=== PATIENT | male | born 1995 | race American Indian/Alaskan Native ===

== ENCOUNTER 2018-04-17 17:57 | Emergency (ER) | payer SELFPAY ==
[2018-04-17] MEDS ORDERED: NACL 0.9% 1000 ML 1,000 ML IV ONE (19:20)
[2018-04-17] MEDS ORDERED: ZOFRAN IV ONE (19:33)
[2018-04-17] MEDS ORDERED: TYLENOL #3 ONE (19:33)
[2018-04-17] MEDS ORDERED: TYLENOL #3 PO ONE (19:33)
[2018-04-17] MEDS ORDERED: ZOFRAN ONE (19:33)
[2018-04-17 19:52] LABS: Hematocrit 45.9 % (35.5-45.6); Hemoglobin 15.2 gm/dl (11.8-15.2); Mean Corpuscular HGB Conc 33 % (32-34); Mean Corpuscular Hemoglobin 33 pg (28-32); Mean Corpuscular Volume 99 fl (84-94); Platelet Count 196 K/mm3 (140-440); Red Blood Count 4.65 M/mm3 (3.65-5.03); Red Cell Distribution Width 13.6 % (13.2-15.2)
[2018-04-17] MEDS ORDERED: KEPPRA 1,000 MG/NS 0.75% 100ML 1,000 MG/100 ML BAG IV ONE (20:13)
--- NOTE | 2018-04-17 21:03 | Cat Scan Report ---
FINAL REPORT PROCEDURE: CT HEAD/BRAIN WO CON TECHNIQUE: Computerized tomography of the head was performed without contrast material. HISTORY: headache COMPARISON: No prior studies are available for comparison. FINDINGS: Skull and scalp: Normal. Paranasal sinuses: Normal. Ventricles and subarachnoid spaces: Normal. Cerebrum: No evidence of hemorrhage, acute infarction or mass . Cerebellum and brainstem: No evidence of hemorrhage, acute infarction or mass. Vasculature: Normal. Comments: None. IMPRESSION: Normal Examination
[2018-04-17 21:21] LABS: BUN/Creatinine Ratio 11; Blood Urea Nitrogen 10 mg/dL (9-20); Calcium 9.6 mg/dL (8.4-10.2); Hemolysis Index 12
--- NOTE | 2018-04-17 21:56 | Emergency Department Report ---
HPI - General Chief Complaint: Seizure Time Seen by Provider: 04/17/18 19:10 - HPI HPI: The patient is a 23-year-old male presents for evaluation of seizure-like activity. The patient is accompanied by family member, whom reports witnessing the patient experience shaking of the extremities and unresponsiveness approximate one-hour prior to arrival, lasting for less than 1 minute. The patient reports mild stinging pain to the left lateral tongue, secondary to biting of his tongue during the seizure-like activity. The patient's mother states that he has exhibited seizure-like activity a minimum of 4-5 times over the past 6 months. He does not recall seizure-like activity but does recall biting his tongue one night during sleep. The patient denies fever, head injury , headache, neck pain, neck stiffness, vision or hearing changes, smell or taste changes, paresthesias, facial drooping, slurred speech, urine or bowel incontinence or retention, or other focal neurological deficit. ED Past Medical Hx - Past Medical History Previous Medical History?: No - Surgical History Past Surgical History?: No - Social History Smoking Status: Current Every Day Smoker Substance Use Type: None - Medications Home Medications: Home Medications Medication Instructions Recorded Confirmed Last Taken Type ALBUTEROL Inhaler [ProAir HFA 2 puff IH QID PRN #1 inhalation 11/16/13 Unknown Rx Inhaler] Azithromycin [Zithromax] 500 mg PO QDAY #3 tablet 11/16/13 Unknown Rx levETIRAcetam [Keppra TAB] 500 mg PO BID #60 tablet 04/17/18 Unknown Rx ED Review of Systems ROS: Stated complaint: SEIZURE Other details as noted in HPI Constitutional: denies: fever ENT: denies: throat or neck pain Respiratory: denies: cough, shortness of breath Cardiovascular: denies: chest pain Endocrine: denies unexplained weight loss or gain Gastrointestinal: denies: abdominal pain, nausea Genitourinary: denies: dysuria Musculoskeletal: denies: leg swelling Skin: denies: rash Neurological: seizure reported (per family) denies: headache Hematological/Lymphatic: denies: easy bleeding or easy bruising Psych: denies sadness or hopelessness Physical Exam - Physical Exam Vital Signs: Vital Signs 04/17/18 04/17/18 04/17/18 18:52 19:00 19:42 Temperature 97.5 F L Pulse Rate 79 89 Respiratory 16 16 Rate Blood Pressure 126/93 Blood Pressure 124/91 [Left] O2 Sat by Pulse 100 99 Oximetry 04/17/18 20:26 Temperature Pulse Rate Respiratory 16 Rate Blood Pressure Blood Pressure [Left] O2 Sat by Pulse Oximetry Physical Exam: General: well-nourished, well-developed, no acute distress Head: Normocephalic, atraumatic Eyes: normal sclera ENT: Mucous membranes are pale and dry Neck: No neck stiffness, no cervical adenopathy Respiratory: Breath sounds equal bilaterally, no wheezing, rales, or rhonchi Cardio: S1 and S2 present, no murmurs, rubs, gallops, capillary refill is delayed Abdomen: Normoactive bowel sounds, soft abdomen, no rigidity, no guarding or rebound tenderness Chest WALL/Back: No tenderness to palpation of the chest wall, no CVA tenderness with percussion Musc: No pitting edema Skin: No rash Neuro:alert oriented x4, normal cognition, speech normal, PERRL, EOM intact, no facial drooping, no uvula or tongue deviation on protrusion, no deficit with rotation of neck or shoulder shrug, no obvious gross motor deficit in the upper or lower extremities with flexion or extension at the shoulder, elbow, wrist, hip, knee, or ankle bilaterally, no obvious gross sensation deficit to crude touch or 2 pt discrimination, 2+ symmetric reflexes on DTR testing, no coordination deficit with [id number] or cceo-[id number] testing, Babinski downgoing, romberg negative, patient able to to ambulate without abnormal gait Psych: Normal affect ED Course Vital Signs 04/17/18 04/17/18 04/17/18 18:52 19:00 19:42 Temperature 97.5 F L Pulse Rate 79 89 Respiratory 16 16 Rate Blood Pressure 126/93 Blood Pressure 124/91 [Left] O2 Sat by Pulse 100 99 Oximetry 04/17/18 20:26 Temperature Pulse Rate Respiratory 16 Rate Blood Pressure Blood Pressure [Left] O2 Sat by Pulse Oximetry ED Medical Decision Making - Lab Data Result diagrams: 04/17/18 19:29 04/17/18 19:29 - Medical Decision Making The patient was seen and examined by myself. The patient is placed on a campus monitor and continuous pulse ox. On initial evaluation, the patient was found to be in no distress. Evaluation orders were placed. The patient 1 L normal saline fluid bolus and IV Keppra for treatment of his seizure. Lab results are unremarkable. CT scan the head is unremarkable. The patient was reevaluated and reported that their symptoms were markedly improved. The patient is stable for discharge with outpatient follow-up. The patient is given follow-up and return instructions. The patient expressed understanding and agreed with the plan. The patient is discharged in stable condition. Critical care attestation.: If time is entered above; I have spent that time in minutes in the direct care of this critically ill patient, excluding procedure time. ED Disposition Clinical Impression: Seizure disorder, Acute non intractable tension-type headache Disposition: DC- TO HOME OR SELFCARE Is pt being admited?: No Does the pt Need Aspirin: No Condition: Stable Instructions: Epilepsy (ED), Recurrent Seizures Adult (ED) Prescriptions: levETIRAcetam [Keppra TAB] 500 mg PO BID #60 tablet Referrals: JULIANA CARRERA MD [Staff Physician] - 3-5 Days GIOVANNI RYAN MD [Staff Physician] - 3-5 Days Time of Disposition: 21:57
[2018-04-17 22:44] VITALS: BP 123/70
== END 2018-04-17 22:44 | disposition home or self-care (01) ==
LOC: ED 17:57
DX: G40.909 Epilepsy, unspecified, not intractable, without status epilepticus (principal); G44.209 Tension-type headache, unspecified, not intractable; F17.200 Nicotine dependence, unspecified, uncomplicated
CPT/HCPCS: 36415; 70450; 80048; 82550; 85027; 93005; 93010; 96361; 96365; 96375; 99285; G0480; J1953; J2405; J7030; 80320

== ENCOUNTER 2018-07-12 09:49 | Emergency (ER) | payer OTHER ==
[2018-07-12] MEDS ORDERED: KEPPRA 1,000 MG/NS 0.75% 100ML 1,000 MG/100 ML BAG IV ONE (10:20)
[2018-07-12] MEDS ORDERED: TORADOL IV ONE (10:20)
--- NOTE | 2018-07-12 10:21 | Emergency Department Report ---
ED Seizure HPI - General Chief Complaint: Seizure Stated Complaint: SEIZURE Time Seen by Provider: 07/12/18 10:11 Source: patient, RN notes reviewed, old records reviewed Mode of arrival: Wheelchair Limitations: No Limitations - History of Present Illness Initial Comments: This is a 23-year-old gentleman who is not known to this provider previously. He has a past medical history of seizure disorder, is supposed to be on Keppra 500 mg twice daily, and reports poor medication compliance. He presented to the ER with friends with reports of a seizure 30 minutes prior to arrival. The patient indicates poor compliance with his antiepileptic drug therapy. He does not think he fell or hit his head. His seizure did not radiate anywhere, and resolved on insulin. He indicates throbbing global headache, which is not sudden or thunderclap in nature and not maximal in intensity. He also complains of diffuse myalgias. He denies cough, shortness of breath, urinary symptoms. MD Complaint: possible seizure -: Sudden, This morning Seizure History: known seizure disorder, history of non-compliance Place: home Associated Symptoms: malaise, other (headache). denies: chest pain, confusion, cough, diaphoresis, fever/chills, loss of appetite, rash, shortness of breath, syncope, weakness, tongue injury, shoulder dislocation - Related Data Previous Rx's Medication Instructions Recorded Last Taken Type ALBUTEROL Inhaler [ProAir HFA 2 puff IH QID PRN #1 inhalation 11/16/13 Unknown Rx Inhaler] Azithromycin [Zithromax] 500 mg PO QDAY #3 tablet 11/16/13 Unknown Rx levETIRAcetam [Keppra TAB] 500 mg PO BID #60 tablet 04/17/18 Unknown Rx levETIRAcetam [Keppra TAB] 500 mg PO BID #60 tablet 07/12/18 Unknown Rx Allergies Allergy/AdvReac Type Severity Reaction Status Date / Time No Known Allergies Allergy Verified 11/16/13 11:04 ED Review of Systems ROS: Stated complaint: SEIZURE Other details as noted in HPI Constitutional: malaise Eyes: denies: eye discharge ENT: denies: epistaxis Respiratory: denies: cough Cardiovascular: denies: chest pain Gastrointestinal: denies: abdominal pain Genitourinary: denies: urgency Musculoskeletal: arthralgia, myalgia Neurological: weakness. denies: numbness, paresthesias, confusion, abnormal gait, vertigo ED Past Medical Hx - Past Medical History Previous Medical History?: Yes Hx Seizures: Yes (not on medication) - Surgical History Past Surgical History?: No - Social History Smoking Status: Current Every Day Smoker Substance Use Type: Alcohol - Medications Home Medications: Home Medications Medication Instructions Recorded Confirmed Last Taken Type ALBUTEROL Inhaler [ProAir HFA 2 puff IH QID PRN #1 inhalation 11/16/13 Unknown Rx Inhaler] Azithromycin [Zithromax] 500 mg PO QDAY #3 tablet 11/16/13 Unknown Rx levETIRAcetam [Keppra TAB] 500 mg PO BID #60 tablet 04/17/18 Unknown Rx levETIRAcetam [Keppra TAB] 500 mg PO BID #60 tablet 07/12/18 Unknown Rx ED Physical Exam - General Limitations: No Limitations General appearance: alert, in no apparent distress - Head Head exam: Present: atraumatic, normocephalic - Eye Eye exam: Present: normal appearance, PERRL, EOMI, other (visual acuity intact to finger counting, color perception, reading at a close distance). Absent: nystagmus - ENT ENT exam: Present: normal exam, normal orophraynx, mucous membranes moist, normal external ear exam - Neck Neck exam: Present: normal inspection, full ROM - Respiratory Respiratory exam: Present: normal lung sounds bilaterally. Absent: respiratory distress - Cardiovascular Cardiovascular Exam: Present: regular rate, normal rhythm, normal heart sounds. Absent: bradycardia, tachycardia, irregular rhythm, systolic murmur, diastolic murmur, rubs, gallop - GI/Abdominal GI/Abdominal exam: Present: soft, normal bowel sounds. Absent: distended, tenderness, guarding, rebound, rigid, pulsatile mass - Rectal Rectal exam: Present: deferred - Extremities Exam Extremities exam: Present: normal inspection, full ROM, normal capillary refill , other (2+ pulses noted in the bilateral upper, lower extremities. Compartments soft. No long bony tenderness. The pelvis is stable.). Absent: pedal edema, joint swelling, calf tenderness - Back Exam Back exam: Present: normal inspection, full ROM. Absent: tenderness, CVA tenderness (R), paraspinal tenderness, vertebral tenderness - Neurological Exam Neurological exam: Present: alert, oriented X3, CN II-XII intact, normal gait, other (Extraocular movements intact. Tongue midline. No facial droop. Facial sensation intact to light touch in the V1, V2, V3 distribution bilaterally. 5 and 5 strength in 4 extremities.. Sensation is intact to light touch in 4 extremities.). Absent: motor sensory deficit - Psychiatric Psychiatric exam: Present: normal affect, normal mood - Skin Skin exam: Present: warm, dry, intact, normal color. Absent: rash ED Course Vital Signs 07/12/18 07/12/18 07/12/18 09:47 10:00 10:01 Temperature 97.6 F Pulse Rate 60 88 Respiratory 22 15 15 Rate Blood Pressure 135/76 135/76 O2 Sat by Pulse 98 99 Oximetry 07/12/18 10:31 Temperature Pulse Rate Respiratory Rate Blood Pressure 134/71 O2 Sat by Pulse 100 Oximetry ED Medical Decision Making - Lab Data Result diagrams: 07/12/18 09:55 07/12/18 09:55 Vital Signs 07/12/18 07/12/18 07/12/18 09:47 10:00 10:01 Temperature 97.6 F Pulse Rate 60 88 Respiratory 22 15 15 Rate Blood Pressure 135/76 135/76 O2 Sat by Pulse 98 99 Oximetry 07/12/18 10:31 Temperature Pulse Rate Respiratory Rate Blood Pressure 134/71 O2 Sat by Pulse 100 Oximetry Lab Results 07/12/18 07/12/18 07/12/18 Range/Units 09:55 09:55 09:55 WBC 11.6 H (4.5-11.0) K/mm3 RBC 4.67 (3.65-5.03) M/mm3 Hgb 15.7 H (11.8-15.2) gm/dl Hct 47.4 H (35.5-45.6) % MCV 102 H (84-94) fl MCH 34 H (28-32) pg MCHC 33 (32-34) % RDW 13.1 L (13.2-15.2) % Plt Count 213 (140-440) K/mm3 Sodium 140 (137-145) mmol/L Potassium 3.9 (3.6-5.0) mmol/L Chloride 100.0 (98-107) mmol/L Carbon Dioxide 18 L (22-30) mmol/L Anion Gap 26 mmol/L BUN 12 (9-20) mg/dL Creatinine 1.1 (0.8-1.5) mg/dL Estimated GFR > 60 ml/min BUN/Creatinine Ratio 11 % Glucose 122 H (75-100) mg/dL POC Glucose (70-105) Calcium 10.1 (8.4-10.2) mg/dL Total Creatine Kinase 187 H (55-170) units/L // Range/Units 10:03 WBC (4.5-11.0) K/mm3 RBC (3.65-5.03) M/mm3 Hgb (11.8-15.2) gm/dl Hct (35.5-45.6) % MCV (84-94) fl MCH (28-32) pg MCHC (32-34) % RDW (13.2-15.2) % Plt Count (140-440) K/mm3 Sodium (137-145) mmol/L Potassium (3.6-5.0) mmol/L Chloride (98-107) mmol/L Carbon Dioxide (22-30) mmol/L Anion Gap mmol/L BUN (9-20) mg/dL Creatinine (0.8-1.5) mg/dL Estimated GFR ml/min BUN/Creatinine Ratio % Glucose (75-100) mg/dL POC Glucose 121 H (70-105) Calcium (8.4-10.2) mg/dL Total Creatine Kinase (55-170) units/L - Medical Decision Making Differential diagnosis, including but not limited to: Seizure, migraine headache , tension headache, cluster headache, medication noncompliance Assessment and plan: 23-year-old gentleman with recurrent seizure, last visit to this hospital was in March, endorses medication noncompliance. His physical examination and neurologic examination are appropriate and within normal limits , he walks with a steady gait, and has a Ethan Coma Scale of 15, with an NIH score of 0. He is clinically sober at this time, given Toradol for his headache , and loaded with 1 g of Keppra. Patient is advised that noncompliance with Therapy may result in breakthrough seizures, which in turn can cause disability , paralysis, loss of quality of life. He is further advised to remain compliant with his antiepileptic drug therapy, and to not drive or operate motor vehicles for the next 6 months. Critical care attestation.: If time is entered above; I have spent that time in minutes in the direct care of this critically ill patient, excluding procedure time. ED Disposition Clinical Impression: History of seizure Disposition: DC-01 TO HOME OR SELFCARE Is pt being admited?: No Does the pt Need Aspirin: No Condition: Good Instructions: Recurrent Seizures Adult (ED) Additional Instructions: Do not drive or operate motor vehicles for the next 6 months. Follow up with the neurology specialist within the next 7-10 days. Not taking his seizure medicine may result in breakthrough seizure, which can cause , disability, paralysis, loss of quality life. Take acetaminophen, alternating with ibuprofen [id number] as needed for pain. Return to the ER right away with recurrent seizure, projectile vomiting, change in mental status, confusion , inability to tolerate liquid feeds. Take the seizure/keppra medication as directed. Referrals: GO LIN MD [Referring] - 3-5 Days KOFI ALFARO MD [Staff Physician] - 3-5 Days JUANCARLOS MONSALVE MD [Staff Physician] - 3-5 Days
[2018-07-12 10:26] LABS: Hematocrit 47.4 % (35.5-45.6); Hemoglobin 15.7 gm/dl (11.8-15.2); Mean Corpuscular HGB Conc 33 % (32-34); Mean Corpuscular Hemoglobin 34 pg (28-32); Mean Corpuscular Volume 102 fl (84-94); Platelet Count 213 K/mm3 (140-440); Red Blood Count 4.67 M/mm3 (3.65-5.03); Red Cell Distribution Width 13.1 % (13.2-15.2)
[2018-07-12 10:49] VITALS: BP 134/71
[2018-07-12 11:03] LABS: BUN/Creatinine Ratio 11; Blood Urea Nitrogen 12 mg/dL (9-20); Calcium 10.1 mg/dL (8.4-10.2); Hemolysis Index 34
== END 2018-07-12 13:04 | disposition home or self-care (01) ==
LOC: ED 09:49
DX: R56.9 Unspecified convulsions (principal); F17.200 Nicotine dependence, unspecified, uncomplicated
CPT/HCPCS: 36415; 80048; 82550; 82962; 85027; 96374; 96375; 99284; J1885; J1953

== ENCOUNTER 2018-09-01 10:41 | Emergency (ER) | payer SELFPAY ==
[2018-09-01] MEDS ORDERED: KEPPRA 1,000 MG/NS 0.75% 100ML 1,000 MG/100 ML BAG IV ONE (11:12)
--- NOTE | 2018-09-01 11:15 | Emergency Department Report ---
ED Seizure HPI - General Chief Complaint: Seizure Stated Complaint: SEIZURE Time Seen by Provider: 09/01/18 11:12 Source: patient Mode of arrival: Stretcher Limitations: No Limitations - History of Present Illness Initial Comments: Patient is a 23-year-old male with a history of seizure disorder who is presenting status post seizure. Patient had a grand mal seizure prior to arrival but is back at his baseline at this time. Patient takes Keppra but has been very noncompliant with his medications. The patient admits that he is not been taking his medicines lately. Patient denies any issues with eating and drinking feels back at his baseline at this time he denies any fevers neck stiffness nausea vomiting or diarrhea. - Related Data Previous Rx's Medication Instructions Recorded Last Taken Type ALBUTEROL Inhaler (OR & NICU) 2 puff IH QID PRN #1 inhalation 11/16/13 Unknown Rx [ProAir HFA Inhaler] Azithromycin [Zithromax] 500 mg PO QDAY #3 tablet 11/16/13 Unknown Rx levETIRAcetam [Keppra TAB] 500 mg PO BID #60 tablet 04/17/18 Unknown Rx levETIRAcetam [Keppra TAB] 500 mg PO BID #60 tablet 07/12/18 Unknown Rx Allergies Allergy/AdvReac Type Severity Reaction Status Date / Time No Known Allergies Allergy Verified 11/16/13 11:04 ED Review of Systems ROS: Stated complaint: SEIZURE Other details as noted in HPI Comment: All other systems reviewed and negative ED Past Medical Hx - Past Medical History Previous Medical History?: Yes Hx Seizures: Yes (not on medication) - Social History Smoking Status: Current Every Day Smoker Substance Use Type: Marijuana - Medications Home Medications: Home Medications Medication Instructions Recorded Confirmed Last Taken Type ALBUTEROL Inhaler (OR & NICU) 2 puff IH QID PRN #1 inhalation 11/16/13 Unknown Rx [ProAir HFA Inhaler] Azithromycin [Zithromax] 500 mg PO QDAY #3 tablet 11/16/13 Unknown Rx levETIRAcetam [Keppra TAB] 500 mg PO BID #60 tablet 04/17/18 Unknown Rx levETIRAcetam [Keppra TAB] 500 mg PO BID #60 tablet 07/12/18 Unknown Rx ED Physical Exam - General Limitations: No Limitations General appearance: alert, in no apparent distress - Head Head exam: Present: atraumatic, normocephalic - Eye Eye exam: Present: normal appearance - ENT ENT exam: Present: mucous membranes moist - Neck Neck exam: Present: normal inspection - Respiratory Respiratory exam: Present: normal lung sounds bilaterally. Absent: respiratory distress, wheezes, rales - Cardiovascular Cardiovascular Exam: Present: regular rate, normal rhythm. Absent: systolic murmur, diastolic murmur, rubs, gallop - GI/Abdominal GI/Abdominal exam: Present: soft, normal bowel sounds. Absent: tenderness, guarding, rebound - Rectal Rectal exam: Present: deferred - Extremities Exam Extremities exam: Present: normal inspection - Back Exam Back exam: Present: normal inspection - Neurological Exam Neurological exam: Present: alert, oriented X3 - Psychiatric Psychiatric exam: Present: normal affect, normal mood - Skin Skin exam: Present: warm, dry, intact, normal color. Absent: rash ED Course Vital Signs 09/01/18 11:02 Temperature 98.2 F Pulse Rate 97 H Respiratory 16 Rate Blood Pressure 132/82 O2 Sat by Pulse 100 Oximetry ED Medical Decision Making - Medical Decision Making Patient was loaded with 1 g of Keppra. Patient was seizure free while in emergency department the patient was urged to take his Keppra as prescribed. Patient be discharged home at this time. Critical care attestation.: If time is entered above; I have spent that time in minutes in the direct care of this critically ill patient, excluding procedure time. ED Disposition Clinical Impression: Seizure, Seizure secondary to subtherapeutic anticonvulsant medication Disposition: - TO HOME OR SELFCARE Is pt being admited?: No Does the pt Need Aspirin: No Condition: Stable Instructions: Epilepsy (ED) Referrals: PRIMARY CARE, [Primary Care Provider] - 3-5 Days Time of Disposition: 12:02
[2018-09-01 12:36] VITALS: BP 140/88
== END 2018-09-01 12:35 | disposition home or self-care (01) ==
LOC: ED 10:41 → EEVIPCON 10:41 → ED 12:35
DX: G40.509 Epileptic seizures related to external causes, not intractable, without status epilepticus (principal); F17.200 Nicotine dependence, unspecified, uncomplicated; F12.10 Cannabis abuse, uncomplicated
CPT/HCPCS: 96365; 99283; J1953

== ENCOUNTER 2019-07-05 11:58 | Emergency (ER) | payer OTHER ==
[2019-07-05] MEDS ORDERED: KEPPRA 1,000 MG in NACL 0.9% 100 ML IV ONE (12:32)
--- NOTE | 2019-07-05 12:36 | Emergency Department Report ---
ED Seizure HPI - General Chief Complaint: Seizure Stated Complaint: SEIZURE Time Seen by Provider: 07/05/19 12:27 Source: patient Mode of arrival: Ambulatory Limitations: No Limitations - History of Present Illness Initial Comments: 25-year-old male presents to the ED following seizure at home. The patient has seizure history, reports he is compliant with his Keppra 500 mg twice a day. Family currently at bedside, witnessed seizure. They believe this seizure may be due to stress because patient's brother on yesterday. Patient has laceration to left eyebrow. Denies headache at this time. MD Complaint: seizure -: hour(s) (1) Description of Episode: loss of consciousness Witnessed:: Yes Trauma: Yes Seizure History: known seizure disorder, compliant with medication Place: home Possible Precipitating Event: stress ( of family member) Associated Symptoms: denies: chest pain, fever/chills, shortness of breath Treatments Prior to Arrival: none - Related Data Previous Rx's Medication Instructions Recorded Last Taken Type ALBUTEROL Inhaler (OR & NICU) 2 puff IH QID PRN #1 inhalation 11/16/13 Unknown Rx [ProAir HFA Inhaler] levETIRAcetam [Keppra TAB] 500 mg PO BID #60 tablet 07/12/18 Unknown Rx Naproxen [Naprosyn] 500 mg PO BID #20 tablet 07/05/19 Unknown Rx levETIRAcetam [Keppra TAB] 500 mg PO BID #60 tablet 07/05/19 Unknown Rx Allergies Allergy/AdvReac Type Severity Reaction Status Date / Time No Known Allergies Allergy Verified 11/16/13 11:04 ED Review of Systems ROS: Stated complaint: SEIZURE Other details as noted in HPI Comment: All other systems reviewed and negative Constitutional: denies: chills, fever Respiratory: denies: cough Cardiovascular: denies: chest pain Gastrointestinal: denies: abdominal pain, vomiting Neurological: denies: headache ED Past Medical Hx - Past Medical History Previous Medical History?: Yes Hx Seizures: Yes (not on medication) - Surgical History Past Surgical History?: No - Social History Smoking Status: Never Smoker Substance Use Type: None - Medications Home Medications: Home Medications Medication Instructions Recorded Confirmed Last Taken Type ALBUTEROL Inhaler (OR & NICU) 2 puff IH QID PRN #1 inhalation 11/16/13 07/05/19 Unknown Rx [ProAir HFA Inhaler] levETIRAcetam [Keppra TAB] 500 mg PO BID #60 tablet 07/12/18 07/05/19 Unknown Rx Naproxen [Naprosyn] 500 mg PO BID #20 tablet 07/05/19 Unknown Rx levETIRAcetam [Keppra TAB] 500 mg PO BID #60 tablet 07/05/19 Unknown Rx ED Physical Exam - General Limitations: No Limitations General appearance: alert, in no apparent distress - Head Head exam: Present: other (3 cm laceration to left brow) - Eye Eye exam: Present: normal appearance, PERRL, EOMI - ENT ENT exam: Present: mucous membranes moist - Neck Neck exam: Present: normal inspection - Respiratory Respiratory exam: Present: normal lung sounds bilaterally. Absent: respiratory distress - Cardiovascular Cardiovascular Exam: Present: regular rate, normal rhythm - GI/Abdominal GI/Abdominal exam: Present: soft. Absent: distended, tenderness - Extremities Exam Extremities exam: Present: normal inspection - Neurological Exam Neurological exam: Present: alert, oriented X3, CN II-XII intact. Absent: motor sensory deficit - Psychiatric Psychiatric exam: Present: normal affect, normal mood - Skin Skin exam: Present: warm, dry, intact, normal color ED Course Vital Signs 07/05/19 07/05/19 07/05/19 12:13 14:14 16:56 Temperature 98.4 F Pulse Rate 78 94 H 74 Respiratory 16 16 16 Rate Blood Pressure 129/73 Blood Pressure 129/96 146/74 [Left] O2 Sat by Pulse 98 96 96 Oximetry - Laceration /Wound Repair Face Wound Location: face Wound Length (cm): 3 Wound's Depth, Shape: into muscle, linear Wound Explored: clean Irrigated w/ Saline (ccs): 30 Anesthesia: 1% Lidocaine Volume Anesthetic (ccs): 3 Wound Repaired With: sutures Suture Size/Type: 3:0, proline Number of Sutures: 3 Layer Closure?: No ED Medical Decision Making - Lab Data Result diagrams: 07/05/19 12:37 07/05/19 12:37 - Radiology Data Radiology results: report reviewed, image reviewed - Medical Decision Making 24-year-old male presenting to the ED following seizures at home. Patient did have 1 seizure here in the ED, for which he received Ativan. Keppra also given. Seizures thought to be due to stress, as patient's brother on yesterday. Patient reports he has been compliant with his medications. CT head negative for any intracranial injury. Patient sustained laceration to the left eyebrow, which was repaired. The patient also reported some right shoulder pain, which she states usually happens after a seizure. X-ray of the right shoulder shows no fracture or dislocation. Patient feeling much better at this time will discharge home. Has upcoming appointment with neurologist. Return precautions given. - Differential Diagnosis intracranial injury, fracture, shoulder dislocation Critical care attestation.: If time is entered above; I have spent that time in minutes in the direct care of this critically ill patient, excluding procedure time. ED Disposition Clinical Impression: Seizure, Facial laceration, Contusion of shoulder, right Disposition: DC-01 TO HOME OR SELFCARE Is pt being admited?: No Condition: Stable Instructions: Suture Care (ED), Laceration (ED) Additional Instructions: Please return to the ER or follow up with your physician in 5 days to have sutures removed. Prescriptions: levETIRAcetam [Keppra TAB] 500 mg PO BID #60 tablet Naproxen [Naprosyn] 500 mg PO BID #20 tablet Referrals: PRIMARY CAREMD [Primary Care Provider] - 3-5 Days KIESHA HAWK MD [Staff Physician] - 3-5 Days Forms: Work/School Release Form(ED) Time of Disposition: 18:03
[2019-07-05] MEDS ORDERED: ATIVAN ONE (12:53)
[2019-07-05] MEDS ORDERED: KEPPRA 1,000 MG/NS 0.75% 100ML 1,000 MG/100 ML BAG IV ONE (12:56)
[2019-07-05] MEDS ORDERED: ATIVAN IV ONE (13:01)
[2019-07-05 13:22] LABS: BUN/Creatinine Ratio 12; Blood Urea Nitrogen 12 mg/dL (9-20); Hemolysis Index 16
[2019-07-05 13:37] LABS: Hematocrit 44.4 % (35.5-45.6); Hemoglobin 14.7 gm/dl (11.8-15.2); Mean Corpuscular HGB Conc 33 % (32-34); Mean Corpuscular Volume 99 fl (84-94); Platelet Count 192 K/mm3 (140-440); Red Blood Count 4.49 M/mm3 (3.65-5.03); Red Cell Distribution Width 13.8 % (13.2-15.2)
--- NOTE | 2019-07-05 14:45 | Cat Scan Report ---
CT HEAD WITHOUT CONTRAST INDICATION : Seizure, injury. TECHNIQUE: Axial imaging performed from the skull apex through the skull base without the use of con trast. Sagittal and coronal reformatted images. All CT scans at this location are performed using C T dose reduction for ALARA by means of automated exposure control. COMPARISON: 04/17/2018 FINDINGS: Parenchyma: No acute intracranial hemorrhage or parenchymal abnormality. Ventricles: Ventricles are normal in size and appear symmetric. Bones: No acute osseous abnormality. Sinuses: Sinuses and mastoid air cells are clear. Soft tissues: Soft tissues including the orbits appear normal. IMPRESSION: No acute abnormality. Signer Name: Gordon Lemus Jr, MD Signed: 07/05/2019 2:40 PM Workstation Name: [id number]
[2019-07-05 14:58] LABS: Band Neutrophils # (Manual) 0.1 K/mm3; Basophils % (Manual) 0 % (0.0-1.8); Eosinophils % (Manual) 0 % (0.0-4.3); Platelet Estimate Consistent w Auto; RBC Morphology Normal; Total Cells Counted 100
[2019-07-05] MEDS ORDERED: XYLOCAINE 1% 20 mL ONE (16:14)
[2019-07-05 16:59] VITALS: BP 146/74
[2019-07-05] MEDS ORDERED: IBUPROFEN PO ONE (17:11)
--- NOTE | 2019-07-05 17:54 | XRay Report ---
RIGHT SHOULDER 3 VIEW(S) INDICATION / CLINICAL INFORMATION: pain COMPARISON: None available. FINDINGS: BONES / JOINT(S): No acute fracture or subluxation. No significant arthritis. SOFT TISSUES: No significant abnormality. ADDITIONAL FINDINGS: None. Signer Name: Fabrizio Bradley MD Signed: 07/05/2019 5:50 PM Workstation Name: [id number]
== END 2019-07-05 18:32 | disposition home or self-care (01) ==
LOC: ED 11:58
DX: S01.112A Laceration without foreign body of left eyelid and periocular area, initial encounter (principal); S40.011A Contusion of right shoulder, initial encounter; G40.909 Epilepsy, unspecified, not intractable, without status epilepticus; X58.XXXA Exposure to other specified factors, initial encounter; Y93.89 Activity, other specified; Y92.098 Other place in other non-institutional residence as the place of occurrence of the external cause; Y99.8 Other external cause status
CPT/HCPCS: 12013; 36415; 70450; 73030; 80048; 85007; 85025; 96365; 96375; 99285; J1953; J2060

== ENCOUNTER 2019-07-10 12:04 | Emergency (ER) | payer OTHER ==
--- NOTE | 2019-07-10 12:45 | Emergency Department Report ---
Suture/Staple Removal - HPI Chief Complaint: Laceration/Recheck/Suture Stated Complaint: TO GET STITCHES REMOVED Time Seen by Provider: 07/10/19 12:44 When Sutures or [place] Placed: 07/05/19 Wound Location: left eyebrow laceration ED Review of Systems ROS: Stated complaint: TO GET STITCHES REMOVED Other details as noted in HPI Comment: All other systems reviewed and negative ED Past Medical Hx - Past Medical History Previous Medical History?: Yes Hx Seizures: Yes (not on medication) - Surgical History Past Surgical History?: No - Social History Smoking Status: Never Smoker Substance Use Type: None - Medications Home Medications: Home Medications Medication Instructions Recorded Confirmed Last Taken Type ALBUTEROL Inhaler (OR & NICU) 2 puff IH QID PRN #1 inhalation 11/16/13 07/05/19 Unknown Rx [ProAir HFA Inhaler] levETIRAcetam [Keppra TAB] 500 mg PO BID #60 tablet 07/12/18 07/05/19 Unknown Rx Naproxen [Naprosyn] 500 mg PO BID #20 tablet 07/05/19 Unknown Rx levETIRAcetam [Keppra TAB] 500 mg PO BID #60 tablet 07/05/19 Unknown Rx Suture Removal Exam - Exam General: Vital signs noted. No distress. Alert and acting appropriately. Wound: No Pathologic Erythema, No Tenderness, No Drainage, No Pus, No Wound Dehiscence Other Systems: All other systems reviewed and are unremarkable. ED Recheck MDM - Medical Decision Making wound appears clean,dry, intact advised pt that he needs a tetanus immunization and then we will remove the sutures pt eloped from the ED prior to receiving tetanus or suture removal Critical care attestation.: If time is entered above; I have spent that time in minutes in the direct care of this critically ill patient, excluding procedure time. ED Disposition Clinical Impression: Visit for suture removal Disposition: ELOPED Is pt being admited?: No Does the pt Need Aspirin: No Condition: Stable Referrals: ELICIA ECDILLO MD [Primary Care Provider] - 2-3 Days
[2019-07-10] MEDS ORDERED: BOOSTRIX IM ONE (12:46)
[2019-07-10 12:47] VITALS: BP 110/80
== END 2019-07-10 15:05 | disposition left against medical advice (07) ==
LOC: ED 12:04
DX: S01.112D Laceration without foreign body of left eyelid and periocular area, subsequent encounter (principal); Z79.899 Other long term (current) drug therapy; X58.XXXD Exposure to other specified factors, subsequent encounter
CPT/HCPCS: 90471

== ENCOUNTER 2019-07-11 08:51 | Emergency (ER) | payer OTHER ==
--- NOTE | 2019-07-11 09:08 | Emergency Department Report ---
Suture/Staple Removal - [facility] Chief Complaint: Laceration/Recheck/Suture Stated Complaint: SUTURE REMOVAL Time Seen by Provider: 07/11/19 09:08 ED Review of Systems ROS: Stated complaint: SUTURE REMOVAL Other details as noted in HPI ED Past Medical Hx - Past Medical History Hx Seizures: Yes (not on medication) - Social History Smoking Status: Never Smoker Substance Use Type: None - Medications Home Medications: Home Medications Medication Instructions Recorded Confirmed Last Taken Type ALBUTEROL Inhaler (OR & NICU) 2 puff IH QID PRN #1 inhalation 11/16/13 07/05/19 Unknown Rx [ProAir HFA Inhaler] levETIRAcetam [Keppra TAB] 500 mg PO BID #60 tablet 07/12/18 07/05/19 Unknown Rx Naproxen [Naprosyn] 500 mg PO BID #20 tablet 07/05/19 Unknown Rx levETIRAcetam [Keppra TAB] 500 mg PO BID #60 tablet 07/05/19 Unknown Rx Suture Removal Exam - Exam General: Vital signs noted. No distress. Alert and acting appropriately. Other Systems: All other systems reviewed and are unremarkable. Critical care attestation.: If time is entered above; I have spent that time in minutes in the direct care of this critically ill patient, excluding procedure time. ED Disposition Condition: Stable Referrals: JEWELS ROBLES MD [Primary Care Provider] - 3-5 Days
--- NOTE | 2019-07-11 09:14 | Emergency Department Report ---
Blank Doc - Documentation Documentation: assistant store leader stated that patient is here for suture removal. When I entered the patients room to see the patient, patient was not there. RN stated that patient left and stated will come back. I contacted the patient to the phone number listed and he stated he will come back later.
== END 2019-07-11 09:15 | disposition left against medical advice (07) ==
LOC: ED 08:51
DX: Z53.21 Procedure and treatment not carried out due to patient leaving prior to being seen by health care provider (principal)

== ENCOUNTER 2019-08-13 12:53 | Emergency (ER) | payer OTHER ==
[2019-08-13] MEDS ORDERED: KEPPRA 1,000 MG/NS 0.75% 100ML 1,000 MG/100 ML BAG IV ONE ×2 (14:18→14:21)
--- NOTE | 2019-08-13 14:35 | Emergency Department Report ---
ED General Adult HPI - General Chief complaint: Seizure Stated complaint: SEIZURE Time Seen by Provider: 08/13/19 14:25 Source: EMS Mode of arrival: Stretcher Limitations: Altered Mental Status - History of Present Illness Initial comments: 24 y.o. male with a history of seizures on keppra therapy presents with complaint of seizure activity. Patient last received IV Keppra last month. Patient states he did not take his Keppra this morning. Patient describes urinary incontinence but denies biting of the tongue. Patient denies any other injuries to his upper extremities. Patient states that the last thing he recalls is being in the bed and the next thing he recalls is being here in emergency department. patient denies bleeding. - Related Data Previous Rx's Medication Instructions Recorded Last Taken Type ALBUTEROL Inhaler (OR & NICU) 2 puff IH QID PRN #1 inhalation 11/16/13 Unknown Rx [ProAir HFA Inhaler] levETIRAcetam [Keppra TAB] 500 mg PO BID #60 tablet 07/12/18 Unknown Rx Naproxen [Naprosyn] 500 mg PO BID #20 tablet 07/05/19 Unknown Rx levETIRAcetam [Keppra TAB] 500 mg PO BID #60 tablet 07/05/19 Unknown Rx levETIRAcetam [Keppra TAB] 500 mg PO BID #60 tablet 08/13/19 Unknown Rx Allergies Allergy/AdvReac Type Severity Reaction Status Date / Time No Known Allergies Allergy Verified 11/16/13 11:04 ED Review of Systems ROS: Stated complaint: SEIZURE Other details as noted in HPI Constitutional: denies: chills, fever Eyes: denies: eye pain, eye discharge, vision change ENT: denies: ear pain, throat pain Respiratory: denies: cough, shortness of breath, wheezing Cardiovascular: denies: chest pain, palpitations Endocrine: no symptoms reported Gastrointestinal: denies: abdominal pain, nausea, diarrhea Genitourinary: denies: urgency, dysuria Musculoskeletal: denies: back pain, joint swelling, arthralgia Skin: denies: rash, lesions Neurological: other (seizure) Psychiatric: denies: anxiety, depression Hematological/Lymphatic: denies: easy bleeding, easy bruising ED Past Medical Hx - Past Medical History Hx Seizures: Yes (not on medication) - Social History Smoking Status: Never Smoker Substance Use Type: None - Medications Home Medications: Home Medications Medication Instructions Recorded Confirmed Last Taken Type ALBUTEROL Inhaler (OR & NICU) 2 puff IH QID PRN #1 inhalation 11/16/13 07/05/19 Unknown Rx [ProAir HFA Inhaler] levETIRAcetam [Keppra TAB] 500 mg PO BID #60 tablet 07/12/18 07/05/19 Unknown Rx Naproxen [Naprosyn] 500 mg PO BID #20 tablet 07/05/19 Unknown Rx levETIRAcetam [Keppra TAB] 500 mg PO BID #60 tablet 07/05/19 Unknown Rx levETIRAcetam [Keppra TAB] 500 mg PO BID #60 tablet 08/13/19 Unknown Rx ED Physical Exam - General Limitations: Altered Mental Status General appearance: alert, other (comfortable; no acute distress) - Head Head exam: Present: atraumatic, normocephalic - Eye Eye exam: Present: normal appearance - ENT ENT exam: Present: mucous membranes moist, other (no lesions on tongue) - Neck Neck exam: Present: normal inspection - Respiratory Respiratory exam: Present: normal lung sounds bilaterally. Absent: respiratory distress - Cardiovascular Cardiovascular Exam: Present: regular rate, normal rhythm. Absent: systolic murmur, diastolic murmur, rubs, gallop - GI/Abdominal GI/Abdominal exam: Present: soft, normal bowel sounds - Rectal Rectal exam: Present: deferred - Extremities Exam Extremities exam: Present: normal inspection - Back Exam Back exam: Present: normal inspection - Neurological Exam Neurological exam: Present: alert, oriented X3 - Psychiatric Psychiatric exam: Present: normal affect, normal mood - Skin Skin exam: Present: warm, dry, intact, normal color. Absent: rash ED Course Vital Signs 08/13/19 08/13/19 08/13/19 13:04 13:15 16:10 Temperature 97.4 F L Pulse Rate 86 47 L Respiratory 16 16 14 Rate Blood Pressure 103/67 137/74 [Left] O2 Sat by Pulse 100 99 94 Oximetry ED Medical Decision Making - Lab Data Result diagrams: 08/13/19 14:49 08/13/19 14:49 - Medical Decision Making Patient received IV keppra while in the ER. Patient has had no subsequent seizures while in the ER. - Differential Diagnosis Seizure; Dehydration; Intracranial Bleed; Anemia Critical care attestation.: If time is entered above; I have spent that time in minutes in the direct care of this critically ill patient, excluding procedure time. ED Disposition Clinical Impression: Seizure Disposition: DC- TO HOME OR SELFCARE Is pt being admited?: No Condition: Stable Instructions: Epilepsy (ED) Prescriptions: levETIRAcetam [Keppra TAB] 500 mg PO BID #60 tablet Time of Disposition: 17:00 Print Language: JAPANESE
[2019-08-13 15:00] LABS: Hematocrit 44.2 % (35.5-45.6); Hemoglobin 14.9 gm/dl (11.8-15.2); Mean Corpuscular HGB Conc 34 % (32-34); Mean Corpuscular Volume 99 fl (84-94); Platelet Count 183 K/mm3 (140-440); Red Blood Count 4.46 M/mm3 (3.65-5.03)
[2019-08-13 15:20] LABS: Alanine Aminotransferase 11 units/L (7-56); Albumin 4.8 g/dL (3.9-5); BUN/Creatinine Ratio 11; Blood Urea Nitrogen 11 mg/dL (9-20); Calcium 9.5 mg/dL (8.4-10.2); Hemolysis Index 36
[2019-08-13 16:20] VITALS: BP 137/74
--- NOTE | 2019-08-13 16:25 | Cat Scan Report ---
CT BRAIN: 08/13/2019 INDICATION / CLINICAL INFORMATION: seizure. COMPARISON: 07/05/2019 FINDINGS: BRAIN/INTRACRANIAL STRUCTURES: Unenhanced CT images of the brain demonstrate no evidence of acute abn ormality. Ventricles and sulci are normal in size and shape. There is no evidence of ischemic injury, hemorrhage, or mass. There are no abnormal extra-axial fluid collections. There has been no significant change when compared to the prior exam from 07/05/2019. EXTRACRANIAL STRUCTURES: Unremarkable. IMPRESSION: Negative unenhanced CT of the brain. All CT scans at this location are performed using dose reduction to ALARA by means of automated expos ure control. Signer Name: Pravin Johnson MD Signed: 08/13/2019 4:21 PM Workstation Name: [id number]
== END 2019-08-13 17:00 | disposition home or self-care (01) ==
LOC: ED 12:53
DX: R56.9 Unspecified convulsions (principal); R32 Unspecified urinary incontinence
CPT/HCPCS: 36415; 70450; 80053; 82962; 85027; 96374; 99284; J1953